=== PATIENT | male | born 1975 | race Caucasian/White ===

== ENCOUNTER 2018-03-24 15:40 | Emergency (ER) | payer MEDICAID ==
[2018-03-24] MEDS: DIPHENHYDRAMINE 50 MG CAP PO (16:12)
== END 2018-03-24 16:35 | disposition home or self-care (01) ==
LOC: FTE 16:35
DX: T63.441A Toxic effect of venom of bees, accidental (unintentional), initial encounter (principal); E11.9 Type 2 diabetes mellitus without complications; I10 Essential (primary) hypertension; F17.210 Nicotine dependence, cigarettes, uncomplicated
CPT/HCPCS: 99284; Z7502

== ENCOUNTER 2019-02-25 18:39 | Emergency (ER) | payer MEDICAID ==
[2019-02-25] MEDS: DEXAMETHASONE 10 MG/ML 1 ML INJ IM (20:14)
[2019-02-25] MEDS: KETOROLAC 30 MG INJ IM (20:15)
== END 2019-02-25 20:52 | disposition home or self-care (01) ==
LOC: FTE 18:39
DX: S39.92XA Unspecified injury of lower back, initial encounter (principal); I10 Essential (primary) hypertension; F17.210 Nicotine dependence, cigarettes, uncomplicated; X50.1XXA Overexertion from prolonged static or awkward postures, initial encounter; Y92.9 Unspecified place or not applicable
CPT/HCPCS: 96372; 99284-25